=== PATIENT | female | born 1995 | race Caucasian/White ===

== ENCOUNTER 2020-05-17 16:32 | Emergency (ER) | payer SELFPAY ==
[2020-05-17 16:33] VITALS: BP 125/61; PULSE 83; RESP 18; TEMP 36.9; O2SAT 98; BMI 23.6
[2020-05-17 17:07] VITALS: BP 132/81; PULSE 84; RESP 18; O2SAT 100
--- NOTE | 2020-05-17 17:07 | CT_ITS ---
PROCEDURE: CT ABDOMEN PELVIS W CON CLINICAL INDICATION: RLQ pain Right lower quadrant pain with nausea vomiting COMPARISON: No exams were available for comparison TECHNIQUE: IV Contrast: 75ML Isovue 370 Oral Contrast None Axial images obtained with sagittal and coronal reformats. All CT scans at the facility use one or more dose reduction, viz: automated exposure control, ma/kV adjustment per patient size (including targeted exams where dose is matched to indication, i.e. head), or iterative reconstruction technique. FINDINGS: LOWER THORAX: No acute finding ABDOMEN & PELVIS: 12 mm hypodense lesion left hepatic lobe possibly related to a hemangioma. Mild splenomegaly at 14 cm. The gallbladder, pancreas, and adrenal glands have an unremarkable appearance. Mild prominence of the right renal pelvis and proximal hydroureter with mild enhancement of the mucosa. No definite ureteral calculus is evident. Urinary tract infection is a consideration. Multiple unopacified bowel loops in the abdomen or pelvis which could obscure or mimic pathology. If symptoms persist, consider repeat exam with IV and oral contrast.. The appendix is not clearly delineated. No evidence of appendicitis. There is a small amount fluid in the pelvis. No acute bony finding. IMPRESSION: 1. Minimal prominence of the right renal pelvis and proximal ureter with minimal enhancement of the urothelium. This may be seen with urinary tract infection. Please correlate with urinalysis. 2. Multiple unopacified bowel loops in the abdomen or pelvis which could obscure or mimic pathology. If symptoms persist, consider repeat exam with IV and oral contrast. 3. Indeterminate lesion of the left hepatic lobe possibly due to a hemangioma. Further evaluation could be obtained with MRI with hemangioma protocol. Follow-up may confirm stability. Dictated by: Todd Verduzco MD 05/18/2020 06:43 Todd Verduzco MD in [place] 05/18/2020 06:43
--- NOTE | 2020-05-17 17:08 | [facility].EDABDPAI ---
ED Disposition Clinical Impression: Pyelonephritis Disposition: Home, Self-Care Condition on Discharge: Good Instructions: DI for Kidney Infection Prescriptions: cephALEXin [Cephalexin 500mg Tab] 500 mg PO Q12H 7 Days #14 tab Prescription Printed Referrals: PCP,No [Primary Care Provider] - - Critical Care Critical Care Time: No Attestation: On 05/17/20, the high probability of a clinically significant, sudden or life threatening deterioration of the following system(s) required my full and direct attention, intervention and personal management. The time I documented below is in addition to time spent performing reported procedures but includes the following listed in this critical care notation. Medical Decision Making - Medical Records Medical records reviewed: Yes: I reviewed the patient's medical records. - Abraham Inquiry Pt receiving controlled substance: No Vital Signs: 05/17/20 16:33 05/17/20 17:07 05/17/20 17:30 Temperature 98.5 F Temperature Source Oral Pulse Rate 84 74 Pulse Rate [Right] 83 Respiratory Rate 18 18 17 Blood Pressure 132/81 122/71 Blood Pressure [Right Arm] 125/61 Blood Pressure Mean [Right Arm] 82 02 Sat by Pulse Oximetry 98 100 100 05/17/20 18:09 Temperature Temperature Source Pulse Rate 74 Pulse Rate [Right] Respiratory Rate Blood Pressure 112/55 L Blood Pressure [Right Arm] Blood Pressure Mean [Right Arm] 02 Sat by Pulse Oximetry 100 - Lab Data Lab Results 05/17/20 16:57: WBC 6.9, RBC 4.31, Hgb 12.4, Hct 36.7 L, MCV 85.2, MCH 28.9, MCHC 33.9, RDW 13.4, Plt Count 184, MPV 7.7, Neut % (Auto) 74.5, Lymph % (Auto) 17.9, [place] % (Auto) 5.2, Eos % (Auto) 1.8, Baso % (Auto) 0.5, Neut # (Auto) 5.2, Lymph # (Auto) 1.2, [place] # (Auto) 0.4, Eos # (Auto) 0.1, Baso # (Auto) 0.0 05/17/20 16:57: Sodium 136, Potassium 3.9, Chloride 103, Carbon Dioxide 25, Anion Gap 11.9, BUN 8, Creatinine 0.60, Estimated Creat Clear 160, Estimated GFR 123, Est GFR ( Amer) 149, Glucose 101 H, Calcium 9.8, Total Bilirubin 1.6 H, AST 22, ALT 17, Alkaline Phosphatase 70, Total Protein 8.5 H, Albumin 4.9, Globulin 3.6 H, Albumin/Globulin Ratio 1.4, Lipase 91 05/17/20 17:00: Urine Color Yellow, Urine Appearance Clear, Urine pH 6.0, Ur Specific [place] 1.015, Urine Protein Trace, Urine Glucose (UA) Negative, Urine Ketones Negative, Urine Blood 3+, Urine Nitrate Negative, Urine Bilirubin Negative, Urine Urobilinogen 0.2, Ur Leukocyte Esterase 1+ A, Urine RBC Occasional, Urine WBC 10-20, Ur Squamous Epith Cells 3-5, Urine Bacteria 2+ 05/17/20 17:00: Urine HCG, Qual Negative Result diagrams: 05/17/20 16:57 05/17/20 16:57 Orders (Tests/Meds): ED MEDICATIONS Generic Name Dose Route Start Last Admin Trade Name Freq PRN Reason Stop Dose Admin Sodium Chloride 1,000 mls @ 999 mls/hr 05/17/20 17:00 05/17/20 17:21 Sod Chlor 0.9% 1000ml Bag IV 05/17/20 18:00 999 mls/hr .Q1H1M MICHELE Administration Ceftriaxone Sodium 1 gm/ 50 mls @ 100 mls/hr 05/17/20 18:30 05/17/20 18:32 Sodium Chloride IV 05/31/20 18:29 100 mls/hr Q24H MICHELE Administration Protocol Discontinued Medications Generic Name Dose Route Start Last Admin Trade Name Freq PRN Reason Stop Dose Admin Ketorolac Tromethamine 30 mg 05/17/20 16:58 05/17/20 17:21 Ketorolac 30mg/Ml Vial IV 05/17/20 16:59 30 mg ONCE ONE Administration Morphine Sulfate 4 mg 05/17/20 16:58 05/17/20 17:20 Morphine 4mg/Ml Syringe IV 05/17/20 16:59 Not Given ONCE ONE Ondansetron HCl 4 mg 05/17/20 17:16 05/17/20 17:21 Ondansetron 4mg/2ml Vial IV 05/17/20 17:17 4 mg ONCE ONE Administration ORDERS Category Date Time Status CT abdomen pelvis w con Stat Cat Scan 05/17/20 17:07 Taken Urine Culture Stat Micro 05/17/20 17:00 Received - CT Data CT Scan: Abdomen, Pelvis Time Received: 18:[address] Reviewed: Yes: I have reviewed the patient's CT results, I have viewed the radiologist'
[2020-05-17 17:19] LABS: Microscopic, Urine URINE MICROSCOPIC (MICROSCOPIC)
[2020-05-17 17:21] LABS: Appearance,Urine CLEAR (Clear); Bilirubin,Urine Negative (Negative); Blood, Urine 3+ (Negative); Color,Urine YELLOW (Yellow); Glucose,Urine (UA) Negative (Negative); Ketones,Urine Negative (Negative); Leukocyte Esterase,Urine 1+ (Negative); Nitrate,Urine Negative (Negative); Protein,Urine TRACE (Negative); Specific Gravity, Urine 1.015 (1.005-1.030); Urobilinogen,Urine 0.2 EU/dl (0.2)
[2020-05-17 17:25] LABS: Chloride 103 mmol/L (98-107); Potassium 3.9 mmoL/L (3.5-5.1); Sodium 136 mmol/L (136-145)
[2020-05-17 17:27] LABS: Blood Urea Nitrogen 8 mg/dl (7-17); Creatinine Clearance Estimated 160 mL/min (50-200); Estimated Glomerular Filt Rate 123 ml/min (>60); GFR (African American) 149 ML/MIN (>60)
[2020-05-17 17:28] LABS: Alanine Aminotransferase 17 U/L (12-78); Albumin Level 4.9 g/dl (3.5-5.0); Albumin/Globulin Ratio 1.4 (1.1-1.8); Alkaline Phosphatase 70 U/L (38-126); Anion Gap 11.9 mEq/L (5-15); Aspartate Amino Transferase 22 U/L (14-36); Bilirubin,Total 1.6 mg/dl (0.2-1.3); Calcium 9.8 mg/dl (8.4-10.2); Carbon Dioxide 25 mmol/L (22.0-30.0); Globulin 3.6 g/dL (1.3-3.2); Glucose 101 mg/dl (74-100); Lipase 91 U/L (23-300); Total Protein,Serum 8.5 g/dl (6.3-8.2)
[2020-05-17 17:28] LABS: Urine Pregnancy, HCG Qual. Negative (Negative)
[2020-05-17 17:30] VITALS: BP 122/71; PULSE 74; RESP 17; O2SAT 100
[2020-05-17 17:36] LABS: Basophils % 0.5 % (0.1-2.0); Eosinophils # 0.1 K/mm3 (0.0-0.4); Eosinophils % 1.8 % (0.1-12.0); Hematocrit 36.7 % (37.0-47.0); Hemoglobin 12.4 g/dL (12.2-16.2); Lymphocytes # 1.2 K/mm3 (0.7-4.5); Lymphocytes % 17.9 % (10-50); Mean Corpuscular HGB Conc 33.9 g/dL (31.8-35.4); Mean Corpuscular Hemoglobin 28.9 pg (27.0-31.2); Mean Corpuscular Volume 85.2 fl (81-99); Mean Platelet Volume 7.7 fl (7.4-10.4); Monocytes # 0.4 K/mm3 (0.1-1.0); Monocytes % 5.2 % (1.7-9.3); Neutrophils # 5.2 K/mm3 (1.8-7.8); Neutrophils % 74.5 % (37.0-80.0); Platelet Count 184 K/mm3 (142-424); Red Blood Count 4.31 M/mm3 (4.20-5.40); Red Cell Distribution Width 13.4 % (11.5-17.5); White Blood Count 6.9 K/mm3 (4.8-10.8)
--- NOTE | 2020-05-17 17:51 | PC.NURSE ---
pt back from CT
[2020-05-17 18:08] LABS: Bacteria,Urine 2+ /lpf; RBC,Urine Occasional #/hpf (0-3)
[2020-05-17 18:09] VITALS: BP 112/55; PULSE 74; O2SAT 100
[2020-05-17 18:55] VITALS: BP 107/58; PULSE 71; RESP 81; TEMP 36.8; O2SAT 98
== END 2020-05-17 18:55 | disposition home or self-care (01) ==
PROVIDERS: Emergency Provider Emergency Medicine
DX: N12 Tubulo-interstitial nephritis, not specified as acute or chronic (principal)
CPT/HCPCS: 74177; 80053; 81001; 81025; 83690; 85025; 87086; 87088; 87186; 99282; J2405